=== PATIENT | female | born 1970 | race Caucasian/White ===

== ENCOUNTER 2017-04-26 17:57 | Emergency (ER) | payer OTHER ==
[~2017-04-26] VITALS: Ht 175.3 cm; Wt 60.2 kg
[~2017-04-26 17:57] MED LIST: ALBUTEROL SULF8.5 GM IH; FLEXERIL10 MG PO; Levaquin PO; MEDROL DOSEPAK4 MG PO; NAPROSYN500 MG PO; NOHOMEMEDS; PERCOCET 5/31 TABLET PO; PREDNISONE10 MG PO; PREDNISONE20 MG PO; PROVENTIL HFA6.7 GM IH; ROBITUSSIN AC,T10 ML PO; ULTRAM50 MG PO; VALIUM2 MG PO; ZITHROMAX Z-PA250 MG PO
[2017-04-26] MEDS ORDERED: FLEXERIL10 MG PO (18:52)
[2017-04-26] MEDS ORDERED: NAPROSYN500 MG PO (18:52)
[2017-04-26 19:23] VITALS: BP 147/91
== END 2017-04-26 19:23 | disposition home or self-care (01) ==
LOC: EME 17:57
DX: S16.1XXA Strain of muscle, fascia and tendon at neck level, initial encounter (principal); V49.49XA Driver injured in collision with other motor vehicles in traffic accident, initial encounter; Y92.410 Unspecified street and highway as the place of occurrence of the external cause; M25.512 Pain in left shoulder; F17.200 Nicotine dependence, unspecified, uncomplicated
CPT/HCPCS: 71020; 73030; 99281; 99283

== ENCOUNTER 2018-04-13 10:22 | Emergency (ER) | payer OTHER ==
[~2018-04-13] VITALS: Ht 175.3 cm; Wt 62.9 kg
[2018-04-13 10:40] LABS: BASOPHIL (%) 0.5 % (0-1); EOSINOPHIL (%) 2.3 % (0-5); EOSINOPHIL COUNT 0.1 K/uL (0-0.3); HEMATOCRIT 37.8 % (36.0-46.0); HEMOGLOBIN 12.9 G/DL (11.9-15.5); IMMATURE GRANULOCYTE (%) 0.4 % (0.0-0.7); LYMPHOCYTE (%) 12.1 % (15-42); LYMPHOCYTE COUNT 0.7 K/uL (1.0-2.8); MCH 30.5 PG (29.0-34.0); MCHC 34.1 G/DL (30.0-36.0); MCV 89.4 FL (83-99); MONOCYTE (%) 5.4 % (3-12); MONOCYTE COUNT 0.3 K/uL (0-0.8); NEUTROPHIL (%) 79.3 % (45-76); NEUTROPHIL COUNT 4.4 K/uL (1.8-6.4); PLATELET COUNT 171 K/uL (156-360); RBC DIS.WIDTH-CV 13.2 % (11.8-14.6); RBC DIS.WIDTH-SD 43.5 % (39-53); RED BLOOD COUNT 4.23 M/uL (3.80-5.20); WHITE BLOOD COUNT 5.6 K/uL (4.1-10.2)
[2018-04-13 10:53] LABS: CHLORIDE 108 mEq/L (99-109); POTASSIUM 3.9 mEq/L (3.7-5.4); SODIUM 139 mEq/L (136-147)
[2018-04-13 10:54] LABS: GLUCOSE 112 mg/dL (70-99)
[2018-04-13 10:58] LABS: CREATININE 0.9 mg/dL (0.6-1.3); GFR ESTIMATE (CALCULATED) > 59 mL/min/
[2018-04-13 10:59] LABS: UREA NITROGEN (BUN) 5 mg/dL (9-23)
[2018-04-13] MEDS ORDERED: PREDNISONE20 MG PO (12:51)
[2018-04-13] MEDS ORDERED: VENTOLIN HFA18 GM IH (12:54)
[2018-04-13 13:44] VITALS: BP 130/84
== END 2018-04-13 14:20 | disposition home or self-care (01) ==
LOC: EME 10:22
DX: J44.1 Chronic obstructive pulmonary disease with (acute) exacerbation (principal); F17.200 Nicotine dependence, unspecified, uncomplicated
CPT/HCPCS: 71046; 80048; 83605; 85025; 94640; 99281; 99285; J2930; J7030